=== PATIENT | female | born 1990 | race African-American/Black ===

== ENCOUNTER 2021-08-14 22:24 | Emergency (ER) | payer MEDICAID ==
[~2021-08-14] VITALS: Ht 170.2 cm; Wt 98.4 kg
[2021-08-14 22:30] VITALS: BP_SYST 132
--- NOTE | 2021-08-14 22:30 | NUR ---
Patient triaged and placed in waiting room. VSS and patient appears in no acute distress at this time. Accompanied by FAM MEMBER, awaiting available bed, and MD notified of need for MSE.
--- NOTE | 2021-08-14 23:45 | NUR ---
call pt name in the wr.no answer.
--- NOTE | 2021-08-14 23:50 | NUR ---
call pt name in the wr.no answer.
--- NOTE | 2021-08-14 23:55 | NUR ---
call pt name in the wr.no answer.
== END 2021-08-14 23:55 | disposition left against medical advice (07) ==
LOC: SED 22:24
DX: R10.2 Pelvic and perineal pain (principal); Z53.21 Procedure and treatment not carried out due to patient leaving prior to being seen by health care provider

== ENCOUNTER 2021-09-30 21:22 | Emergency (ER) | payer MEDICAID ==
[~2021-09-30] VITALS: Ht 170.2 cm; Wt 98.9 kg
[2021-09-30 21:34] VITALS: BP_SYST 119
[2021-09-30 22:33] LABS: BASOPHILS % (AUTO) 0.6 % (0.0-2.0); EOSINOPHILS # (AUTO) 0.3 K/uL (0.0-0.4); EOSINOPHILS % (AUTO) 3.4 % (0.0-4.0); HEMATOCRIT 35.9 % (36-48); HEMOGLOBIN 12.2 g/dL (12.0-16.0); LYMPHOCYTES # (AUTO) 2.9 K/uL (1.0-5.5); LYMPHOCYTES % (AUTO) 38.8 % (20.5-51.5); MEAN CORPUSCULAR HEMOGLOBIN 29 pg (27-31); MEAN CORPUSCULAR HGB CONC 34 % (32-36); MEAN CORPUSCULAR VOLUME 85 fL (79.0-98.0); MONOCYTES # (AUTO) 0.4 K/uL (0.0-1.0); MONOCYTES % (AUTO) 5.7 % (1.7-9.3); NEUTROPHILS # (AUTO) 3.9 K/uL (1.8-7.7); NEUTROPHILS % (AUTO) 51.5 % (40.0-70.0); PLATELET COUNT (AUTO) 206 K/uL (130-430); RED BLOOD CELL COUNT(AUTO) 4.24 MIL/uL (4.2-6.2); RED CELL DISTRIBUTION WIDTH 13.9 % (9.0-15.0); WHITE BLOOD COUNT (AUTO) 7.6 K/uL (4.8-10.8)
[2021-09-30 22:43] LABS: CREATININE 0.77 mg/dL (0.55-1.30); POTASSIUM 4.1 mmol/L (3.5-5.1)
[2021-09-30 22:51] LABS: ALBUMIN 3.9 g/dL (3.4-4.8); TOTAL BILIRUBIN 0.3 mg/dL (0.0-1.0)
[2021-10-01 00:55] LABS: BILIRUBIN,URINE NEGATIVE (NEGATIVE); BLOOD, URINE NEGATIVE (NEGATIVE); CLARITY/URINE CLEAR (CLEAR); COLOR,URINE YELLOW (YELLOW); GLUCOSE,URINE NEGATIVE (NEGATIVE); KETONES,URINE NEGATIVE (NEGATIVE); LEUKOCYTE ESTERASE ,URINE NEGATIVE (NEGATIVE); NITRITE, URINE NEGATIVE (NEGATIVE); PH,URINE 6.5 (5.0-8.0); PROTEIN URINE NEGATIVE (NEGATIVE); UROBILINOGEN,URINE 0.2 (0.2-1.0)
[2021-10-01] MEDS ORDERED: MEDR10TA3 PO (00:57)
[2021-10-01 01:16] VITALS: BP_SYST 119
== END 2021-10-01 01:18 | disposition home or self-care (01) ==
LOC: SED 21:22
DX: N93.8 Other specified abnormal uterine and vaginal bleeding (principal); E05.90 Thyrotoxicosis, unspecified without thyrotoxic crisis or storm
CPT/HCPCS: 36415; 76830-TC; 76857; 80053; 81003; 81025; 85025; 99284

== ENCOUNTER 2022-02-09 21:53 | Emergency (ER) | payer MEDICAID ==
[~2022-02-09] VITALS: Ht 170.2 cm; Wt 95.3 kg
[~2022-02-09 21:53] MED LIST: MEDR10TA72 PO
[2022-02-09 21:59] VITALS: BP_SYST 119
--- NOTE | 2022-02-09 22:00 | NUR ---
Patient triaged and placed in waiting room. VSS and patient appears in no acute distress at this time. Accompanied by self , awaiting available bed, and MD notified of need for MSE.
--- NOTE | 2022-02-09 22:05 | NUR ---
Pt brought by self, A&Ox4, pt presents to ER with chest pain x 1 week, VSS, respirations even and unlabored, cap refill <3, VSS.
[2022-02-09 23:19] LABS: BASOPHILS % (AUTO) 0.6 % (0.0-2.0); EOSINOPHILS # (AUTO) 0.2 K/uL (0.0-0.4); EOSINOPHILS % (AUTO) 2.8 % (0.0-4.0); HEMATOCRIT 34.1 % (36-48); HEMOGLOBIN 11.8 g/dL (12.0-16.0); LYMPHOCYTES # (AUTO) 3.3 K/uL (1.0-5.5); LYMPHOCYTES % (AUTO) 44.5 % (20.5-51.5); MEAN CORPUSCULAR HEMOGLOBIN 30 pg (27-31); MEAN CORPUSCULAR HGB CONC 35 % (32-36); MEAN CORPUSCULAR VOLUME 86 fL (79.0-98.0); MONOCYTES # (AUTO) 0.4 K/uL (0.0-1.0); NEUTROPHILS # (AUTO) 3.4 K/uL (1.8-7.7); NEUTROPHILS % (AUTO) 46.1 % (40.0-70.0); PLATELET COUNT (AUTO) 223 K/uL (130-430); RED BLOOD CELL COUNT(AUTO) 3.97 MIL/uL (4.2-6.2); RED CELL DISTRIBUTION WIDTH 12.7 % (9.0-15.0); WHITE BLOOD COUNT (AUTO) 7.4 K/uL (4.8-10.8)
--- NOTE | 2022-02-09 23:38 | NUR ---
Pt aaox3, c/o epigastric pain / substernal cP, denies sob at present, on cm-sr 55-62. Dr. Katz at bedside evaluating Pt. refused IM meds at present, Dr. Katz aware.
[2022-02-09] MEDS: KETOROLAC TROMETHAMINE 15 MG VIAL IM ONE (23:41)
[2022-02-10 00:01] LABS: ANION GAP 11 (5-15); CHLORIDE 104 mmol/L (98-107); CREATININE 0.92 mg/dL (0.55-1.30); GLUCOSE 110 mg/dL (70-99); POTASSIUM 3.7 mmol/L (3.5-5.1); SODIUM SERUM 141 mmol/L (136-145); UREA NITROGEN, BLOOD 11 mg/dL (8-21)
[2022-02-10 00:02] LABS: GFR AFRICAN AMERICAN 92 mL/min (>90)
[2022-02-10 00:16] LABS: ALANINE AMINOTRANSFERASE 19 U/L (12-78); ALBUMIN 3.9 g/dL (3.4-4.8); ASPARTATE AMINOTRANSFERASE 15 U/L (10-37); THYROID STIMULATING HORMONE 15.65 uIu/mL (0.36-3.74); TOTAL BILIRUBIN 0.2 mg/dL (0.0-1.0)
[2022-02-10] MEDS ORDERED: ACET-73 PO (01:05)
--- NOTE | 2022-02-10 01:13 | NUR ---
Pt aaox3, denies sob/cp at present. Eval by Dr. Katz, discharged. Pt in no acute distress, left ER ambulatory w/ steady gait.
[2022-02-10 01:19] VITALS: BP_SYST 109
== END 2022-02-10 01:27 | disposition home or self-care (01) ==
LOC: SED 21:53
DX: S29.011A Strain of muscle and tendon of front wall of thorax, initial encounter (principal); R07.89 Other chest pain; X58.XXXA Exposure to other specified factors, initial encounter; Y93.89 Activity, other specified; Y92.89 Other specified places as the place of occurrence of the external cause; Y99.8 Other external cause status
CPT/HCPCS: 36415; 71045; 80053; 81025; 84443; 84484; 85025; 93005; 99285